=== PATIENT | female | born 1995 | race African-American/Black ===

== ENCOUNTER 2021-05-29 08:32 | Inpatient (IN) | payer OTHER, SELFPAY ==
--- NOTE | 2021-05-29 09:50 | PC.NURSE ---
PT NEEDS NICOTINE REPLACEMENT. PT DID NOT HAVE FLU VACCINE AND DOES NOT WANT DURING ADMISSION.
[2021-05-29 09:52] VITALS: BMI 34.1
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
[2021-05-29 18:00] VITALS: BP 118/58; PULSE 78; RESP 16; O2SAT 99
[2021-05-29] MEDS: Divalproex Sodium ER 250 MG TAB.ER.24H 750 MG PO (19:57)
[2021-05-29] MEDS: Prazosin HCL 1 MG CAPSULE 4 MG PO (19:58)
[2021-05-29] MEDS: Benztropine Mesylate 1 MG TABLET PO (19:58)
[2021-05-29] MEDS: traZODone HCL 100 MG TABLET PO (19:58)
[2021-05-29] MEDS: risperiDONE 2 MG TABLET PO (19:59)
[2021-05-30] MEDS: traZODone HCL 50 MG TABLET PO (03:46)
[2021-05-30] MEDS: hydrOXYzine HCL 25 MG TABLET PO (03:46)
[2021-05-30] MEDS: Melatonin 3 MG TABLET 6 MG PO (03:47)
[2021-05-30 06:00] VITALS: BP 118/56; PULSE 64; RESP 18; TEMP 36.8; O2SAT 98
[2021-05-30] MEDS: Multivitamin TABLET 1 TAB PO (08:43)
[2021-05-30] MEDS: Benztropine Mesylate 1 MG TABLET PO ×2 (08:43→21:31)
[2021-05-30 09:10] LABS: Estimated Average Glucose 97 mg/dL
[2021-05-30 09:24] LABS: Cholesterol 161 mg/dL; HDL Cholesterol 53 mg/dL; LDL Cholesterol Calculated 103 mg/dl; Triglycerides 28 mg/dL
[2021-05-30 09:40] LABS: Thyroid Stimulating Hormone 0.58 uIU/mL (0.32-4.0)
--- NOTE | 2021-05-30 10:00 | ECG_ITS ---
Test Reason : CP Blood Pressure : / mmHG Vent. Rate : 065 BPM Atrial Rate : 065 BPM P-R Int : 152 ms QRS Dur : 074 ms QT Int : 408 ms P-R-T Axes : 038 050 010 degrees QTc Int : 424 ms Normal sinus rhythm with sinus arrhythmia Normal ECG No previous ECGs available Referred By: Samira Centeno Electronically Signed By:JEY BILLINGS MD
[2021-05-30 10:02] LABS: Vitamin B12 907 pg/mL (200-900)
[2021-05-30] MEDS: hydrOXYzine HCL 50 MG TABLET PO (15:50)
[2021-05-30] MEDS: Nicotine Polacrilex 2 MG GUM 4 MG BUCCAL (15:50)
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
[2021-05-30 21:20] VITALS: BP 109/58; PULSE 65; TEMP 36.4
[2021-05-30] MEDS: Prazosin HCL 1 MG CAPSULE 4 MG PO (21:29)
[2021-05-30] MEDS: Divalproex Sodium ER 250 MG TAB.ER.24H 750 MG PO (21:31)
[2021-05-30] MEDS: traZODone HCL 100 MG TABLET PO (21:31)
[2021-05-30] MEDS: risperiDONE 3 MG TABLET PO (21:31)
[2021-05-31] MEDS: Benztropine Mesylate 1 MG TABLET PO ×2 (09:00→20:05)
[2021-05-31] MEDS: Multivitamin TABLET 1 TAB PO (09:00)
[2021-05-31 09:02] VITALS: BP 79/46; PULSE 74; RESP 18; TEMP 36.7; O2SAT 99
[2021-05-31 11:39] VITALS: BMI 35.6
[2021-05-31] MEDS: hydrOXYzine HCL 50 MG TABLET PO (12:39)
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
[2021-05-31] MEDS: traZODone HCL 100 MG TABLET PO (20:05)
[2021-05-31] MEDS: Divalproex Sodium ER 250 MG TAB.ER.24H 750 MG PO (20:05)
[2021-05-31] MEDS: risperiDONE 3 MG TABLET PO (20:05)
[2021-05-31] MEDS: Prazosin HCL 1 MG CAPSULE 4 MG PO (20:13)
[2021-05-31 20:16] VITALS: BP 106/58; PULSE 65; RESP 17
[2021-06-01 06:00] VITALS: BP 112/60; PULSE 72; RESP 18; TEMP 36.5; O2SAT 98
[2021-06-01] MEDS: Multivitamin TABLET 1 TAB PO (08:56)
[2021-06-01] MEDS: Benztropine Mesylate 1 MG TABLET PO ×2 (08:56→19:48)
[2021-06-01] MEDS: hydrOXYzine HCL 50 MG TABLET PO (14:30)
[2021-06-01] MEDS: risperiDONE 1 MG TABLET PO (16:15)
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
[2021-06-01 17:38] VITALS: BP 131/62; PULSE 66; RESP 16; TEMP 37.1; O2SAT 100
[2021-06-01] MEDS: Prazosin HCL 1 MG CAPSULE 4 MG PO (19:47)
[2021-06-01] MEDS: Divalproex Sodium ER 250 MG TAB.ER.24H 750 MG PO (19:47)
[2021-06-01] MEDS: risperiDONE 3 MG TABLET PO (19:48)
[2021-06-01] MEDS: traZODone HCL 100 MG TABLET PO (19:48)
[2021-06-01 19:49] VITALS: BP 105/60; PULSE 62
[2021-06-01] MEDS: traZODone HCL 50 MG TABLET PO (21:05)
[2021-06-01] MEDS: Melatonin 3 MG TABLET 6 MG PO (21:05)
[2021-06-02 08:54] VITALS: BP 117/57; PULSE 70; TEMP 37.2
[2021-06-02] MEDS: risperiDONE 0.5 MG TABLET PO (09:18)
[2021-06-02] MEDS: Benztropine Mesylate 1 MG TABLET PO ×2 (09:18→22:38)
[2021-06-02] MEDS: Multivitamin TABLET 1 TAB PO (09:18)
[2021-06-02] MEDS: hydrOXYzine HCL 50 MG TABLET PO (14:44)
[2021-06-02] MEDS: Nicotine Polacrilex 2 MG GUM 4 MG BUCCAL (15:59)
[2021-06-02 22:35] VITALS: BP 107/50; PULSE 74; TEMP 36.2; O2SAT 98
[2021-06-02] MEDS: risperiDONE 3 MG TABLET PO (22:38)
[2021-06-02] MEDS: Divalproex Sodium ER 250 MG TAB.ER.24H 750 MG PO (22:38)
[2021-06-02] MEDS: Prazosin HCL 1 MG CAPSULE 4 MG PO (22:38)
[2021-06-02] MEDS: traZODone HCL 100 MG TABLET PO (22:38)
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
[2021-06-03] MEDS: Benztropine Mesylate 1 MG TABLET PO ×2 (09:35→19:34)
[2021-06-03] MEDS: risperiDONE 0.5 MG TABLET PO (09:36)
[2021-06-03] MEDS: Multivitamin TABLET 1 TAB PO (09:36)
[2021-06-03] MEDS: risperiDONE 1 MG TABLET PO (16:11)
[2021-06-03] MEDS: Nicotine Polacrilex 2 MG GUM 4 MG BUCCAL (16:13)
[2021-06-03] MEDS: Acetaminophen 325 MG TABLET 650 MG PO (16:50)
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
[2021-06-03 18:00] VITALS: BP 120/68; PULSE 89; RESP 16; TEMP 36.4; O2SAT 98
[2021-06-03] MEDS: Prazosin HCL 1 MG CAPSULE 4 MG PO (19:33)
[2021-06-03] MEDS: Divalproex Sodium ER 250 MG TAB.ER.24H 750 MG PO (19:34)
[2021-06-03] MEDS: risperiDONE 3 MG TABLET PO (19:34)
[2021-06-03] MEDS: traZODone HCL 100 MG TABLET PO (19:35)
[2021-06-03] MEDS: traZODone HCL 50 MG TABLET PO (22:22)
[2021-06-03] MEDS: Melatonin 3 MG TABLET 6 MG PO (22:22)
[2021-06-04 06:00] VITALS: BP 111/62; PULSE 67; RESP 18; TEMP 36.4; O2SAT 99
[2021-06-04] MEDS: Multivitamin TABLET 1 TAB PO (08:44)
[2021-06-04] MEDS: Benztropine Mesylate 1 MG TABLET PO ×2 (08:44→19:36)
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
[2021-06-04] MEDS: Nicotine Polacrilex 2 MG GUM 4 MG BUCCAL (16:30)
[2021-06-04 19:35] VITALS: BP 116/69; PULSE 89; TEMP 36.2
[2021-06-04] MEDS: Divalproex Sodium ER 250 MG TAB.ER.24H 750 MG PO (19:36)
[2021-06-04] MEDS: traZODone HCL 100 MG TABLET PO (19:36)
[2021-06-04] MEDS: risperiDONE 3 MG TABLET PO (19:37)
[2021-06-04] MEDS: Prazosin HCL 1 MG CAPSULE 4 MG PO (19:37)
[2021-06-04] MEDS: Mineral Oil/Petrolatum,White 106 GM Tube 1 APPL TOPICAL (20:14)
[2021-06-04] MEDS: hydrOXYzine HCL 50 MG TABLET PO (21:31)
[2021-06-04] MEDS: Melatonin 3 MG TABLET 6 MG PO (21:31)
[2021-06-04] MEDS: traZODone HCL 50 MG TABLET PO (21:33)
[2021-06-05 08:41] LABS: MANUAL DIFF FLAG NO
[2021-06-05 08:47] LABS: Basophils Percent Auto 0.5 % (0-2); Eosinophils Absolute Auto 0.1 X10*3/uL (0.0-0.4); Eosinophils Percent Auto 2.5 % (0-4); Hematocrit 38.6 % (37.0-47.0); Hemoglobin 11.9 g/dl (12.0-16.0); Lymphocytes Absolute Auto 2.1 X10*3/uL (1.2-4.9); Lymphocytes Percent Auto 52.7 % (20-40); Mean Corpuscular HGB Conc 30.8 g/dl (31.0-35.0); Mean Corpuscular Hemoglobin 25.4 pg (27.0-33.0); Mean Corpuscular Volume 82.3 fL (80.0-98.0); Monocytes Absolute Auto 0.3 X10*3/uL (0.1-1.2); Monocytes Percent Auto 7.6 % (2-11); Neutrophils Absolute Auto 1.5 x10*3/uL (2.0-8.3); Neutrophils Percent Auto 36.7 % (45-73); Platelet Count 252 X10*3/uL (160-400); Red Blood Count 4.69 X10*6/uL (4.20-5.50); Red Cell Distribution Width 13.5 % (11.0-16.0); White Blood Count 4.1 X10*3/uL (4.8-10.8)
[2021-06-05] MEDS: Benztropine Mesylate 1 MG TABLET PO ×2 (09:13→20:36)
[2021-06-05] MEDS: Multivitamin TABLET 1 TAB PO (09:13)
[2021-06-05] MEDS: Mineral Oil/Petrolatum,White 106 GM Tube 1 APPL TOPICAL (09:14)
[2021-06-05 09:43] LABS: Valproate 74.2 mcg/mL (50.0-100.0)
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
[2021-06-05 20:35] VITALS: BP 107/62; PULSE 71; TEMP 36.4
[2021-06-05] MEDS: Prazosin HCL 1 MG CAPSULE 4 MG PO (20:35)
[2021-06-05] MEDS: traZODone HCL 100 MG TABLET PO (20:36)
[2021-06-05] MEDS: Divalproex Sodium ER 250 MG TAB.ER.24H 750 MG PO (20:36)
[2021-06-05] MEDS: risperiDONE 3 MG TABLET PO (20:36)
[2021-06-05] MEDS: hydrOXYzine HCL 50 MG TABLET PO (21:56)
[2021-06-05] MEDS: Melatonin 3 MG TABLET 6 MG PO (21:56)
[2021-06-06 06:00] VITALS: BP 114/72; PULSE 79; RESP 18; TEMP 36.3; O2SAT 98
[2021-06-06] MEDS: Multivitamin TABLET 1 TAB PO (09:28)
[2021-06-06] MEDS: Benztropine Mesylate 1 MG TABLET PO (09:28)
--- NOTE | 2021-06-06 09:45 | PC.NURSE ---
Patient refused to participate in safety tool assessment.
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
== END 2021-06-06 14:24 | disposition other institution (70) | DRG 750 ==
PROVIDERS: Admitting Provider Psychiatry & Neurology Psychiatry; PCP Nurse Practitioner Family; Visit Provider Clinical Nurse Specialist Psychiatric/Mental Health, Adult
DX: F25.0 Schizoaffective disorder, bipolar type (principal); R45.851 Suicidal ideations; F14.10 Cocaine abuse, uncomplicated; F43.0 Acute stress reaction; F17.210 Nicotine dependence, cigarettes, uncomplicated; Z71.6 Tobacco abuse counseling; Z79.899 Other long term (current) drug therapy
CPT/HCPCS: 36415; 80061; 80164; 82607; 82746; 83036; 84443; 85025; 93005